=== PATIENT | female | born 1985 | race Hispanic/Latino ===

== ENCOUNTER 2016-06-23 13:40 | Emergency (ER) | payer OTHER ==
[2016-06-23 13:58] VITALS: TEMP 97.8; O2SAT 100
[2016-06-23] MEDS ORDERED: Sodium Chloride 0.9% 1,000 ML IV ONE ×2 (14:33→16:18)
[2016-06-23] MEDS ORDERED: Sodium Chloride 0.9% 1,000 ML ONE ×2 (14:48→16:22)
[2016-06-23 14:53] LABS: BASO % 0.8 % (0.0-2.0); EOS % 0.3 % (0.0-4.0); HEMATOCRIT 44.4 % (34.0-47.0); LYMPH # 0.9 K/uL (1.0-4.3); LYMPH % 23.8 % (20.0-40.0); MEAN CELL VOLUME 91.9 fL (81.0-99.0); MEAN CORPUSCULAR HEMOGLOBIN 30.8 pg (27.0-31.0); MEAN CORPUSCULAR HGB CONC 33.5 g/dL (33.0-37.0); MEAN PLATELET VOLUME 8.6 fL (7.2-11.7); MONO # 0.4 K/uL (0.0-0.8); MONO % 10.8 % (0.0-10.0); NRBC % 0.1 % (0.0-2.0); RED CELL DISTRIBUTION WIDTH 12.5 % (11.5-14.5); WHITE BLOOD COUNT 3.8 K/uL (4.8-10.8)
[2016-06-23 15:01] LABS: CHLORIDE 92 mmol/L (98-107)
[2016-06-23 15:02] LABS: POTASSIUM 3.9 mmol/L (3.6-5.2); SODIUM 135 mmol/L (132-148)
[2016-06-23 15:04] LABS: ALB/GLOB RATIO 1.3 (1.0-2.1); ALKALINE PHOSPHATASE 48 U/L (38-126); AST/SGOT 33 U/L (14-36); BILIRUBIN,TOTAL 0.5 mg/dL (0.2-1.3); BLOOD UREA NITROGEN 7 mg/dL (7-17); CARBON DIOXIDE 28 mmol/L (22-30); GFR AFRICAN-AMERICAN > 60; TOTAL PROTEIN 7.8 g/dL (6.3-8.3)
[2016-06-23 15:05] LABS: ALT/SGPT 21 U/L (9-52); CALCIUM 8.9 mg/dl (8.6-10.4); GLUCOSE,RANDOM 89 mg/dL (65-105)
--- NOTE | 2016-06-23 16:13 | C.PDOC ---
History Of Present Illness 31-year-old female, presents to the emergency department with complaints of crampy abdominal pain, that is associated with nausea and non-bloody/non- bilious vomiting for the past two days. States she had food with a friend three night ago, and friend has similar abdominal cramping. States she has associated watery stool that turned black Pt is taking charcoal for her symptoms. Denies fevers or chills. Time Seen by Provider: 06/23/16 14:24 Chief Complaint (Nursing): GI Problem History Per: Patient, Family History/Exam Limitations: no limitations Past Medical History Reviewed: Historical Data, Nursing Documentation, Vital Signs Vital Signs: Last Vital Signs Temp 97.8 F 06/23/16 13:57 Pulse 105 H 06/23/16 13:57 Resp 20 06/23/16 13:57 BP 128/96 H 06/23/16 13:57 Pulse Ox 100 06/23/16 16:17 - Medical History PMH: No Chronic Diseases Other Surgeries: Breast Augmentation Family History: States: Unknown Family Hx - Social History Hx Tobacco Use: No Hx Alcohol Use: No Hx Substance Use: No Review Of Systems Except As Marked, All Systems Reviewed And Found Negative. Constitutional: Negative for: Fever, Chills Gastrointestinal: Positive for: Nausea, Vomiting, Abdominal Pain. Negative for : Melena Musculoskeletal: Negative for: Back Pain Skin: Negative for: Rash Neurological: Negative for: Weakness, Numbness, Headache, Dizziness Physical Exam - Physical Exam Appears: Non-toxic Skin: Warm, Dry, No Rash Head: Atraumatic, Normacephalic Eye(s): bilateral: Normal Inspection, PERRL, EOMI Oral Mucosa: Dry Lips: Normal Appearing Neck: Supple Cardiovascular: Rhythm Regular, No Murmur Respiratory: Normal Breath Sounds, No Accessory Muscle Use Gastrointestinal/Abdominal: Soft, No Tenderness, No Guarding, No Rebound Back: No CVA Tenderness Extremity: Normal ROM Neurological/Psych: Oriented x3, Normal Speech, Normal Cognition ED Course And Treatment - Laboratory Results Result Diagrams: 06/23/16 14:46 06/23/16 14:46 O2 Sat by Pulse Oximetry: 100 Medical Decision Making Medical Decision Making: Post meds and fluids feeling better Tolerating PO Unremarkable lab results discussed with mom and pt Plan home with med Disposition Counseled Patient/Family Regarding: Diagnosis, Need For Followup - Disposition Disposition: HOME/ ROUTINE Disposition Time: 17:49 Condition: GOOD Prescriptions: Loperamide [Imodium] 1 cap PO QID PRN #12 cap PRN Reason: Diarrhea Ondansetron [Zofran Odt] 1 odt PO BID PRN #6 odt PRN Reason: .nausea vomiting Instructions: Gastroenteritis (ED) - Clinical Impression Clinical Impression: Gastroenteritis - Scribe Statement The provider has reviewed the documentation as recorded by the Coltenibada Saavedra All medical record entries made by the Coltenibada were at my direction and personally dictated by me. I have reviewed the chart and agree that the record accurately reflects my personal performance of the history, physical exam, medical decision making, and the department course for this patient. I have also personally directed, reviewed, and agree with the discharge instructions and disposition.
[2016-06-23 17:31] LABS: RBC URINE 1 /hpf (0-3); URINE BACTERIA RARE (<OCC); URINE BILIRUBIN NEGATIVE (NEGATIVE); URINE BLOOD NEGATIVE (NEGATIVE); URINE COLOR Yellow (YELLOW); URINE GLUCOSE (UA) NORMAL (Normal); URINE KETONE NEGATIVE (NEGATIVE); URINE LEUKOCYTE ESTERASE NEG Leu/uL (Negative); URINE PROTEIN NEGATIVE (NEGATIVE); URINE UROBILINOGEN NORMAL mg/dL (0.2-1.0); WBC URINE 3 /hpf (0-5)
[2016-06-23 18:41] VITALS: BP 120/76; PULSE 68; RESP 16
== END 2016-06-23 18:42 | disposition home or self-care (01) ==
LOC: C.ER 13:40
DX: K52.9 Noninfective gastroenteritis and colitis, unspecified (principal)
CPT/HCPCS: 80053; 81001; 83690; 84703; 85025; 96361; 96374; 96375; 99285; J1885; J2405; J7040